=== PATIENT | male | born 1945 | race Caucasian/White ===

== ENCOUNTER 2020-02-16 09:01 | Day surgery (SDC) | payer MEDICARE, SELFPAY ==
--- NOTE | 2020-02-16 | LES_PTH ---
PATIENT: JAYDA ROMERO LOC: [facility] [place] U#:[id number] AGE/SX: 74/M ROOM: RE02/16/[address]: Dr. Vinay Mendieta MD : 1945 BED: DIS: 02/16/2020 SPEC #: [id number] RECD: 02/16/20 10:31 STATUS: NARCISA NATHANIEL #: [id number] RILEY: 02/16/20 00:[address]: Vinay Mendieta DEPT: SURGICAL PATHOLOGY RECD BY: Mayra Rasheed ENTERED: 02/16/20 10:59 SP TYPE: Lesion OTHR DR: Dr. Daniel Fitzgerald MD Tissues: Skin of neck, NOS Procedures: Frozen Section (charge) Frozen Section Add'l ([facility]) Surgery Specimen Level IV HEADER OPERATION: Neck lesion excision, frozen section PRE-OP DIAGNOSIS: Right neck skin lesion TISSUE SUBMITTED: Right neck skin lesion, frozen section, long stitch - anterior, short stitch - superior FROZEN SECTION DIAGNOSIS Right neck lesion, excisional biopsy: Basal cell carcinoma, completely excised. LATOYA:clinton 02/16/20 MICROSCOPIC DIAGNOSIS Right neck lesion, excisional biopsy: Basal cell carcinoma, nodular type (1 cm in greatest dimension), completely excised. Extensive solar elastosis. LATOYA:clinton 02/17/20 MICROSCOPIC DESCRIPTION Slides are reviewed. GROSS DESCRIPTION Received fresh for frozen section diagnosis labeled with the patient's name is a specimen designated right neck lesion. The specimen consists of a piece of abdalla-white skin ellipse measuring 3.2 x 1.4 x 0.2 cm. The skin surface shows a abdalla nodular lesion in the central portion of the specimen measuring 1 x 1 cm. The specimen is oriented by sutures, long stitch - anterior, short stitch - superior. The specimen is inked as follows: superior margin - black, inferior margin - blue, anterior tip - green, posterior tip - yellow. The specimen is serially sectioned and submitted entirely for frozen section diagnosis in three cassettes. Cassette 1 contains the tips of the skin ellipse. / LATOYA:clinton 02/16/20 TC:0 CPT: 22711, 73009, 73999 x2
[2020-02-16 09:33] VITALS: BP 146/92; PULSE 76; RESP 16; TEMP 36.8; O2SAT 99; BMI 27.4
--- NOTE | 2020-02-16 10:02 | DCINST_ITS ---
You will use the following diet at home:: Regular Discharge Activity: - - remove dressing and discard tomorrow morning (02/17/20). You may apply a bandaid. The incsion can get wet on Sunday. Allergies/Adverse Reactions: Allergies No Known Allergies Allergy (Verified 04/08/13 06:42) Medications to take at Discharge Amlodipine Besylate 10 mg PO BREAKFAST 02/16/20 Atorvastatin Calcium [Lipitor] 20 mg PO QHS 02/16/20 Primary Care Physician: Daniel Fitzgerald MD [Primary Care Provider] - Test Results: Test results from this visit will be discussed in further detail at your follow- up appointment, if applicable.
[2020-02-16] MEDS: Bacitracin 500 UNITS/GM PACKET (10:20)
--- NOTE | 2020-02-16 10:52 | PCM.OPRPT ---
Report of Operation Date of Procedure: 02/16/20 Pre-Operative Diagnosis: basal cell carcinoma right neck Post-Operative Diagnosis: same Surgery/Procedure Performed:: Excision right neck basal cell carcinoma (1.8x3cm). Intermediate repair (size of defect 1.8x3cm) Type of Anesthesia:: Local Specimen's removed: right neck Estimated Blood Loss (mL): minimal Description of Procedure: Patient was taken to the operating room on 02/16/2020. He was placed in the supine position on the operating room table. He is given sufficient local anesthesia. The right neck was prepped and draped sterilely. 1% lidocaine with epinephrine were injected into the skin surrounding the lesion. After sufficient anesthesia and vasoconstriction, the lesion was excised in an ellipse using a 15 blade. Sutures were used to brooklynn anterior and superior. This was sent for frozen section to pathology. Eventually we heard back that the margins were negative for any basal cell carcinoma. I then undermined the incision circumferentially with iris scissors. Hemostasis was achieved with bipolar cautery. I then irrigated the wound with saline. The deep layer was closed with interrupted 4-0 chromic. The skin was closed with interrupted 6-0 nylon. Bacitracin and pressure dressing were then applied. Patient is in room from the operating regular rate recovery room in stable condition blood loss minimal, replacement none. Sponge, needle, and instrument count were correct at the end of the procedure.
[2020-02-16 11:02] VITALS: BP 146/79; BP 146/92; PULSE 86; RESP 18; TEMP 37.1; O2SAT 99
== END 2020-02-16 11:09 | disposition home or self-care (01) ==
LOC: SDC 09:03 → AC 09:11
PROVIDERS: PCP Internal Medicine; Visit Provider Otolaryngology
PROC: (CPT 11623; principal; 2020-02-16 11:00)
DX: C44.41 Basal cell carcinoma of skin of scalp and neck (principal); Z11.59 Encounter for screening for other viral diseases; Z79.899 Other long term (current) drug therapy
CPT/HCPCS: 11623; 12042; 87635; 88305; 88331; 88332; C9803; U0003

== ENCOUNTER → 2022-06-01 | Outpatient (CLI) | payer MEDICARE, SELFPAY ==
[2022-06-02 17:21] LABS: PSA, Free 4.65 ng/mL
== END | disposition home or self-care (01) ==
LOC: LAB 10:13
PROVIDERS: PCP Internal Medicine; Referring Provider Registered Nurse; Visit Provider Registered Nurse
DX: R97.20 Elevated prostate specific antigen [PSA] (principal)
CPT/HCPCS: 36415; 84153; 84154

== ENCOUNTER → 2022-06-23 | Outpatient (CLI) | payer MEDICARE, SELFPAY ==
--- NOTE | 2022-06-23 10:45 | MRI_ITS ---
STUDY: MR PELVIS WITH AND WITHOUT CONTRAST (PROSTATE) REASON FOR EXAM: Male, 76 years old. Elevated PSA with multiple previous negative biopsies TECHNIQUE: Standardized multiparametric prostate MRI with T1, T2, DWI/ADC sequences were obtained in 3 orthogonal planes, and dynamic contrast enhancement sequences. ml of 19ml Clariscan contrast material was administered intravenously for the contrast portion of the examination. . COMPARISON: None. FINDINGS: The prostate volume measures 179 mm3. The contours of the prostate gland are lobulated. There is mass effect on the bladder base. The transition zone is heterogenous. PI-RADS DWI score 3 - Focal mildly hypointense on ADC and isointense/mildly hyperintense on high b-value DWI. PI-RADS T2W score 2 - A mostly encapsulated nodule OR a homogeneous circumscribed nodule without encapsulation (atypical nodule) or a homogeneous mildly hypointense area between nodules.. Contrast enhancement no early or contemporaneous enhancement; or diffuse multifocal enhancement NOT corresponding to a focal finding on T2W and/or DWI or focal ehancement responding to a lesion demonstrating features of BPH onT2WI (including features of extruded BPH in the PZ). Localized hyperintense T1 signal intensity along the posterior transitional zone likely sequela previous biopsy/old blood products. The peripheral zone is heterogenous, although diminutive. PI-RADS DWI score 2 - Linear/wedge shaped hypointense on ADC and/or linear/wedge shaped hyperintense on high b-value DWI. PI-RADS T2W score 1 - Uniformaly hyperintense (normal). Contrast enhancement no early or contemporaneous enhancement; or diffuse multifocal enhancement NOT corresponding to a focal finding on T2W and/or DWI or focal enhancement responding to a lesion demonstrating features of BPH onT2WI (including features of extruded BPH in the PZ). The seminal vesicles demonstrate normal margins and T2 signal pattern. No mass lesion or invasion depicted. The rectoprostatic angles are normal. Urinary bladder is normal without wall thickening. The vascular structures of the are normal. The visualized hollow viscus structures are normal. No bone marrow edema or mass lesion depicted. MRI/Pelvis W/WO Contrast IMPRESSION: 1. PIRADS v2.1 2019 -- 2 - Low (clinically significant cancer is unlikely). 2. Significant prostatomegaly with lobular contours causing mass effect on bladder base. Electronically Signed: Tomás Porter (Brooks), at 17:10 EST ,
[2022-06-23 10:51] LABS: CREATININE FINGERSTICK < 0.9 mg/dL (0.70-1.30); EGFR FINGERSTICK > 60.0000 mL/min (>60)
== END | disposition home or self-care (01) ==
PROVIDERS: PCP Internal Medicine; Referring Provider Urology; Visit Provider Urology
DX: R97.20 Elevated prostate specific antigen [PSA] (principal)
CPT/HCPCS: 72197; A9575

== ENCOUNTER 2022-08-09 07:25 | Observation (INO) | payer MEDICARE, SELFPAY ==
--- NOTE | 2022-07-25 10:05 | EKG12_ITS ---
Test Reason : PRE OP Blood Pressure : / mmHG Vent. Rate : 077 BPM Atrial Rate : 077 BPM P-R Int : 228 ms QRS Dur : 098 ms QT Int : 390 ms P-R-T Axes : 072 078 074 degrees QTc Int : 441 ms Sinus rhythm with 1st degree A-V block Otherwise normal ECG Confirmed by PHYLLIS REID, ESTELLE ([id number]), editor producer EVAN CENTENO ([id number]) on 07/26/2022 9:58:44 AM Referred By: STEPAN Confirmed By:ESTELLE FERGUSON MD
[2022-08-09] VITALS (18 sets, daily range): BP systolic 113–142; BP diastolic 65–91; PULSE 60–100; RESP 12–183; TEMP 36.2–37.8; O2SAT 92–98; BMI 27.5
[2022-08-09] MEDS: Lactated Ringers 1,000 ML 15 ML IV ×2 (06:45→11:50)
--- NOTE | 2022-08-09 07:19 | PCM.HP.STD ---
HPI - General General Date of Service: 08/09/22 Chief Complaint: BPH with obstruction very large prostate HPI Narrative JAYDA ROMERO, is a 76 M who presents for a robotic simple prostatectomy for a very large prostate BPH with obstruction understands the need to go home with a catheter and would not do laparoscopic robotic assisted simple prostatectomy [facility] Medical History (Updated 08/09/22 @ 07:[address] Adams Lay MD) Arthritis Hypertension Non-smoker Prostate disease Wears glasses Home Medications amlodipine 10 mg tablet 10 mg PO BREAKFAST 02/16/20 [History Last Taken 08/09/22] atorvastatin 20 mg tablet 20 mg PO QHS 02/16/20 [History Last Taken 08/08/22] Allergy/AdvReac Type Severity Reaction Status Date / Time No Known Allergies Allergy Verified 08/09/22 06:19 Social History Smoking Status: Never smoker Vital Signs Vital Signs Vital Signs: 08/09/22 06:21 08/09/22 06:21 Temperature 98.4 F Temperature Source Temporal Pulse Rate 75 Respiratory Rate 18 Respiratory Pattern Normal Blood Pressure 139/72 H Blood Pressure Mean 94 Blood Pressure Source Monitor Blood Pressure Position Semi-Fowlers Blood Pressure Location Right Arm Pulse Ox 96 Oxygen Delivery Method Room Air Weight Weight: 92 kg Body Mass Index (BMI) 27.5 Physical Exam Const alert and oriented x3 General Appearance: cooperative HEENT normocephalic, head/scalp atraumatic, EAC's normal and TM's normal bilaterally Eyes PERRL and EOMs intact bilaterally Pupil: sluggish Neck no lymphadenopathy, supple and no JVD General: trachea midline Lymph Lymphatic: no lymphadenopathy noted, lymphedema and lymphadenopathy Resp normal respiratory effort, normal air movement and clear to auscultation bilaterally Cardio regular rate, regular rhythm and peripheral pulses 2+ throughout GI soft to palpation, non-tender and non-distended Extremity normal capillary refill and no clubbing, cyanosis or edema General Extremity: no tenderness to palpation of joints or extremities Skin no rashes or lesions noted General Skin Exam: turgor normal Lesions: no lesions Rashes: no rashes Neuro CN's II-XII intact bilaterally Speech: speech normal Motor Exam: strength 5/5 throughout; Negative for general weakness Psych thought process normal, cooperative and affect normal Appearance: appropriate Assessment & Plan Assessment/Plan (1) BPH loc w urin obs/LUTS: PLAN: Plan for surgical intervention to relieve obstruction
--- NOTE | 2022-08-09 07:25 | DCINST_ITS ---
Discharge Instructions Diet Discharge Diet: No restrictions, Light diet - advance as tolerated and Soft diet Activity Discharge Activity: May Not Drive Dressing / Incision Catheter: Lara to leg bag and Lara to large bag Drain: [place] Follow Up Care Please Follow Up With: Adams Lay MD When: 10 days call for appt. to remove lara Test Results: Test results from this visit will be discussed in further detail at your follow- up appointment, if applicable. Discharge Plan Admission Primary Reason for Your Visit: simple robotic prostatectomy Attending Provider: Adams Lay Primary Care Provider: Daniel Fitzgerald Instructions Patient Instructions: TURP Home Recovery Discharge Orders/Prescriptions Prescriptions: New ciprofloxacin HCl [Cipro] 500 mg tablet 500 mg PO BID Qty: 14 0RF oxycodone-acetaminophen [Endocet] 5-325 mg tablet 1 tab PO Q6H PRN (Reason: pain) 7 Days Qty: 14 0RF docusate sodium [Colace] 100 mg capsule 100 mg PO BID Qty: 20 0RF Continued atorvastatin 20 MG tablet 20 mg PO QHS amlodipine 10 MG tablet 10 mg PO BREAKFAST Other Ambulatory Orders: 12 Lead EKG (Routine) Timeframe: [id number] Location: None Selected Ordered By: Dr. Kofi Chen Referrals / Follow Up: Adams Lay MD [Med Staff - Active Staff] - Daniel Fitzgerald MD [Primary Care Provider] - Disposition Disposition (needs filled in before D/C Order can be placed): Home, Self Care
[2022-08-09] MEDS: Cefazolin 2 GM in 0.9% Normal Saline 100 ML IV (07:26)
--- NOTE | 2022-08-09 07:30 | PROST_PTH ---
PATIENT: JAYDA ROMERO LOC: [facility] U#:[id number] AGE/SX: 76/M ROOM: VA309 RE08/09/[address]: Dr. Adams Lay MD : 1945 BED: 1 DIS: 08/10/2022 SPEC #: [id number] RECD: 08/09/22 14:10 STATUS: NARCISA ARMSTRONG #: [id number] RILEY: 08/09/22 07:[address]: Adams Lay DEPT: SURGICAL PATHOLOGY RECD BY: Hailey Hutson ENTERED: 08/10/22 10:45 SP TYPE: PROSTATE OTHR DR: Dr. Daniel Fitzgerald MD Tissues: Prostate, NOS Procedures: Surgery Specimen Level HEADER OPERATION: Lap robotic simple prostatectomy PRE-OP DIAGNOSIS: BPH with obstruction, very large prostate TISSUE SUBMITTED: Prostate MICROSCOPIC DIAGNOSIS Prostate, simple prostatectomy: Benign prostatic hyperplasia. Focal chronic inflammation. SJ:clinton 08/11/2022 MICROSCOPIC DESCRIPTION Slides are reviewed. GROSS DESCRIPTION Received in fixative is one container labeled with the patient's name and designated prostate. The specimen consists of a simple prostatectomy specimen in multiple pieces weighing in aggregate 105 gm. The largest piece of prostate measures 10.0 x 5.0 x 3.5 cm. Multiple smaller pieces measure in aggregate 7.0 x 7.0 x 2.0 cm. Sections do not reveal any obvious mass lesion. Sweeper Brush Maker Machine sections are submitted in ten cassettes as follows: 1 & 2 ? detached smaller pieces of tissue, 3-10 ? largest piece of tissue. / SJ:clinton 08/10/2022 TC: CPT: 21481
[2022-08-09] MEDS: Lubricating Jelly 60 GM Tube 30 GM (08:30)
[2022-08-09] MEDS: Bupivacaine Mpf 0.5% 30 ML VIAL (10:04)
--- NOTE | 2022-08-09 10:17 | PCM.OPRPT ---
Report of Operation Date of Procedure: 08/09/22 Pre-Operative Diagnosis: BPH with obstruction Post-Operative Diagnosis: Same Surgery/Procedure Performed:: Laparoscopic robotic assisted simple prostatectomy Description of Surgical Findings:: Indication this is a 76-year-old male has a prostate about over 120 g in size so today working to proceed with a laparoscopic simple robotic assisted prostatectomy. We talked about the risk of surgery bleeding infection we expect that after the surgery the patient will have improvement in his urinary symptoms and bladder control. Patient was taken back to the operating room at a smooth induction of general anesthesia he was placed in dorsal lithotomy position. The abdomen was penis were straight shaved prepped and draped in usual sterile fashion. We put a 16 Vietnamese catheter into the bladder. We then made a small incision above the umbilicus dissected down to the peritoneal cavity and inserted the Veress needle into the peritoneal cavity up to the obtained pneumoperitoneum and placed the camera trocar right arm trocar left arm trocar and then an air suction 8 mm port air seal port. We then docked the robot. I freed up the attachments of the colon on the lateral wall I then inflated the bladder with 400 cc of saline made an incision in the midline in the bladder used a Juan Antonio needle to open up the bladder on both sides and then we found a very large protruding prostate in the middle I then scored all the way around this prostate I then dissected between the pseudocapsule of the prostate and the prostate to then enucleate the very large prostate going from the 12:00 to 6 o'clock position until we came across the urethral plate and the catheter that all the adenomatous tissue was enucleated out and put in Endo Catch bag we then cleaned up any other small pieces that were freed up we obtained cauterization pinpoint cauterization placed Floseal into the prostate and then we did did a reanastomosis advancing the mucosa all the way around from the 6:00 to 12 o'clock position left and right side with a V-Loc stitch using a V-Loc stitch to armed suture once the mucosa was advanced that we put a 20 Vietnamese catheter in the bladder and then I closed the bladder in 2 layers we did a leak test and then we extracted the prostate through the umbilicus extract removal of the ports and then the patient was an anesthetic was versed is taken back to PACU good condition and he had a flush of the urine was clear and was draining pink pinch think tinged colored urine. And he will stay overnight for observation hopefully go home tomorrow with a catheter minimal blood loss in the case about 110 cc and removal of a very large adenomatous BPH tissue. Surgeon: Adams Lay Type of Anesthesia: General Drains: 20 fr lara Estimated Blood Loss (mL): 125 Admit VTE Documentation VTE Present on Admission: No VTE Mechan Device Prophylaxis: SCD's VTE Pharm Prophylaxis ordered?: No
--- NOTE | 2022-08-09 11:02 | SUR.PHASEI ---
IRRIGATED PATIENT'S REYES CATHETER FOR SEVERAL LARGE CLOTS PER DR. YING TELEPHONE ORDER. BRIGHT RED URINE NOTED COMING FROM CATHETER.
[2022-08-09] MEDS: Lactated Ringers 1,000 ML 999 ML IV (11:09)
[2022-08-09] MEDS: Ketorolac 15 MG/ML Vial IV ×2 (12:04→18:55)
--- NOTE | 2022-08-09 12:19 | SUR.PHASEI ---
IRRIGATED PATIENT'S CATHETER 3 TIMES SO FAR TOTAL OF 1000'S CC'S NORMAL SALINE AND THEN SWITCHED TO STERILE WATER D/T LACK OF MORE NS. STILL GETTING COPIOUS CLOTS. DRAINAGE IS BRIGHT RED WITH CLOTS. WILL CALL STEPAN.
[2022-08-09] MEDS: Acetaminophen 325 MG Tablet PO (16:02)
[2022-08-09] MEDS: 0.9% Normal Saline 1,000 ML 125 ML IV (16:34)
[2022-08-09] MEDS: 0.9% Saline Lock 10 ML Syringe IV (18:55)
[2022-08-09] MEDS: Docusate Sodium 100 MG Capsule 200 MG PO (22:25)
[2022-08-09] MEDS: Ciprofloxacin 400 MG/200 ML BAG 200 MG IV (22:25)
[2022-08-09] MEDS: Atorvastatin Calcium 20 MG Tablet PO (22:25)
[2022-08-10 00:32] VITALS: BP 119/76; PULSE 78; RESP 14; TEMP 36.6; O2SAT 97
[2022-08-10] MEDS: 0.9% Normal Saline 1,000 ML 125 ML IV ×2 (00:39→06:37)
[2022-08-10] MEDS: Ketorolac 15 MG/ML Vial IV ×2 (00:44→06:37)
[2022-08-10] MEDS: 0.9% Saline Lock 10 ML Syringe IV (00:49)
[2022-08-10 04:52] VITALS: BP 121/80; PULSE 74; RESP 16; TEMP 36.6; O2SAT 97
--- NOTE | 2022-08-10 07:12 | PCM.PN.GU ---
Subjective Subjective Status post robotic simple prostatectomy urine is clear as a catheter in place he can go home today with a Bryant to leg bag. Objective Data Objective Data Vital Signs: Vital Signs Temp Pulse Resp BP Pulse Ox O2 Del Method O2 Flow Rate 97.8 F 74 16 121/80 H 97 Room Air 2 08/10/22 04:52 08/10/22 04:52 08/10/22 04:52 08/10/22 04:52 08/10/22 04:52 08/10/22 04:52 08/09/22 11:30 Oxygen Flow Rate (L/min) 2 Oxygen Delivery Method Room Air Weight: 92 kg Body Mass Index (BMI) 27.5 Intake & Output: Intake and Output for Last 24 Hours 08/08/22 08/09/22 08/10/22 23:59 23:59 23:59 Intake Total 3782.25 / 3782.25 1450.00 / 1450.00 Output Total 2225 / 2225 1025 / 1025 Balance 1557.25 / 1557.25 425.00 / 425.00
[2022-08-10 08:57] VITALS: BP 138/69; PULSE 84; RESP 17; TEMP 37.1; O2SAT 93
[2022-08-10] MEDS: amLODIPine 10 MG Tablet PO (09:17)
[2022-08-10] MEDS: Docusate Sodium 100 MG Capsule 200 MG PO (09:18)
[2022-08-10] MEDS: Ciprofloxacin 400 MG/200 ML BAG 200 MG IV (09:18)
--- NOTE | 2022-08-10 11:42 | PHA.DC.MC ---
Pharmacy Service has performed discharge medication reconciliation and counseling for this patient. The patient was counseled on the following discharge medications and changes in medications for homegoing were reviewed. 1. CIPRO 2. PERCOCET 3. DOCUSATE The Reason for Use, instructions for use, and potential side effects were reviewed for all new medications. The patient's questions regarding all of their medications were answered. The patient was able to verbally demonstrate an understanding of their discharge medications. Home Medications amlodipine 10 mg tablet 10 mg PO BREAKFAST 02/16/20 atorvastatin 20 mg tablet 20 mg PO QHS 02/16/20 ciprofloxacin HCl 500 mg tablet (Cipro) 500 mg PO BID #14 tabs 08/09/22 docusate sodium 100 mg capsule (Colace) 100 mg PO BID #20 caps 08/09/22 oxycodone-acetaminophen 5 mg-325 mg tablet (Endocet) 1 tab PO Q6H PRN pain 7 days #14 tabs 08/09/22
[2022-08-10] MEDS: HYDROcodone Bitartrate/Apap 5/325 Tablet PO (12:20)
== END 2022-08-10 12:50 | disposition home or self-care (01) ==
LOC: SDC 15:23 → MS3 15:23
PROVIDERS: Admitting Provider Urology; PCP Internal Medicine; Referring Provider Urology; Visit Provider Urology
PROC: 0VT04ZZ Resection of Prostate, Percutaneous Endoscopic Approach (ICD-10-PCS; CPT 55867; principal; 2022-08-09 07:10)
DX: N40.1 Benign prostatic hyperplasia with lower urinary tract symptoms (principal); N13.8 Other obstructive and reflux uropathy; M19.90 Unspecified osteoarthritis, unspecified site; I10 Essential (primary) hypertension; Z79.899 Other long term (current) drug therapy
CPT/HCPCS: 55867; S2900; 00840; 88309; 93005; 94668; 96361; 96365; 96366; 96375; 96376; 99221; 99252; J7030; J7120; A4216; G0378; G0463; J0744; J2405

== ENCOUNTER → 2022-12-28 | Outpatient (CLI) | payer MEDICARE, SELFPAY ==
[2022-12-28 11:44] LABS: PSA,Total- Diagnostic 1.69 ng/mL (0.0-4.0)
== END | disposition home or self-care (01) ==
LOC: LAB 10:57
PROVIDERS: PCP Internal Medicine; Referring Provider Urology; Visit Provider Urology
DX: R97.20 Elevated prostate specific antigen [PSA] (principal)
CPT/HCPCS: 36415; 84153

== ENCOUNTER → 2024-01-10 | Outpatient (CLI) | payer MEDICARE, SELFPAY ==
[2024-01-10 11:14] LABS: PSA,Total- Diagnostic 1.01 ng/mL (0.0-4.0)
== END | disposition home or self-care (01) ==
LOC: OLS.ABSOLU 09:52 → LAB 09:55
PROVIDERS: PCP Internal Medicine; Referring Provider Urology; Visit Provider Urology
DX: R97.20 Elevated prostate specific antigen [PSA] (principal)
CPT/HCPCS: 36415; 84153

== ENCOUNTER → 2025-01-12 | Outpatient (CLI) | payer MEDICARE, SELFPAY ==
[2025-01-12 12:55] LABS: PSA,Total- Diagnostic 1.30 ng/mL (0.00-4.00)
== END | disposition home or self-care (01) ==
PROVIDERS: PCP Internal Medicine; Referring Provider Urology; Visit Provider Urology
DX: N40.0 Benign prostatic hyperplasia without lower urinary tract symptoms (principal)
CPT/HCPCS: 36415; 84153